=== PATIENT | female | born 1970 | race Asian ===

== ENCOUNTER → 2019-03-24 | Outpatient (CLI) | payer OTHER ==
[~2019-03-24] MED LIST: AMPI250C11 PO; DCS100C PO; GABA-488; HYDR-34 PO; HYDR-3720 PO; IBP800T PO; METR500T PO; NITR100C3 PO; ONDA4TAB11 PO
== END ==
LOC: LABNPT 10:00
PROVIDERS: ATTEND Specialist
DX: K09.8 Other cysts of oral region, not elsewhere classified (principal)
CPT/HCPCS: 87070; 87205

== ENCOUNTER → 2019-06-02 | Outpatient (CLI) | payer OTHER ==
--- NOTE | 2019-06-02 11:44 | Diagnostic Imaging Report ---
INDICATION: Screening. The current study was also evaluated with a Computer Aided Detection (CAD) system. 3-D Tomographic imaging was also performed. COMPARISON: Comparison made with prior examinations from 04/05/2016, 12/31/2013, and 12/19/2012. FINDINGS: The fibroglandular tissue is heterogeneously dense bilaterally. There is no dominant mass, spiculated lesion, or suspicious calcification identified. The skin, nipples, and axillae are unremarkable. IMPRESSION: Negative. ACR BI-RADS Category 1: Negative. Result letter will be mailed to the patient. Note: At least 10% of breast cancer is not imaged by mammography. Dictated by: Dictated on workstation # [id number]
== END ==
LOC: RAD 10:35
PROVIDERS: ATTEND Obstetrics & Gynecology
DX: Z12.31 Encounter for screening mammogram for malignant neoplasm of breast (principal)
CPT/HCPCS: 77067

== ENCOUNTER → 2019-08-26 | Outpatient (CLI) | payer OTHER ==
--- NOTE | 2019-08-26 12:49 | Diagnostic Imaging Report ---
PROCEDURE: US Thyroid. TECHNIQUE: Multiple Real-time grayscale images were obtained of the thyroid in various projections. INDICATION: Thyroid nodule, followup. COMPARISON: 12/22/2013. FINDINGS: The right lobe of the thyroid measures 4.2 x 1.1 x 1.4 cm and the left lobe measures 4.8 x 1.4 x 1.0 cm. The isthmus is 1 mm in thickness. There is a cystic nodule in the mid left lobe of the thyroid measuring approximately 5 mm x 4 mm in size. This is similar in size to small cysts noted 6 years earlier. No dominant thyroid mass is detected. IMPRESSION: Subcentimeter left lobe thyroid cyst. The study is otherwise unremarkable. Dictated by: Dictated on workstation # [id number]
== END ==
LOC: RAD 10:28
PROVIDERS: ATTEND Family Medicine
DX: E04.1 Nontoxic single thyroid nodule (principal); Z85.850 Personal history of malignant neoplasm of thyroid
CPT/HCPCS: 76536

== ENCOUNTER → 2021-02-22 | Outpatient (CLI) | payer OTHER ==
--- NOTE | 2021-02-22 15:24 | Diagnostic Imaging Report ---
INDICATION: Routine screening. COMPARISON: 06/02/2019 and 04/05/2016. TECHNIQUE: 2D and 3D bilateral screening mammography was performed with CAD. FINDINGS: Both breasts are heterogeneously dense, limiting the sensitivity of mammography. The parenchymal pattern is stable. No mass or malignant-appearing microcalcifications are seen. The axillae are unremarkable. IMPRESSION: No mammographic features suspicious for malignancy are identified. ACR BI-RADS Category 1: Negative. Result letter will be mailed to the patient. Note: At least 10% of breast cancer is not imaged by mammography. Dictated by: Dictated on workstation # [id number]
== END ==
LOC: RAD 14:09
PROVIDERS: ATTEND Obstetrics & Gynecology
DX: Z12.31 Encounter for screening mammogram for malignant neoplasm of breast (principal)
CPT/HCPCS: 77063; 77067

== ENCOUNTER → 2021-02-22 | Outpatient (CLI) | payer OTHER ==
--- NOTE | 2021-02-22 15:19 | Diagnostic Imaging Report ---
INDICATION: Asymptomatic postmenopausal female COMPARISON: None. FINDINGS: AP Spine L1-L4: [BMD (g/cm2): 0.826] [T-Score: -3.1] [Z-Score: -2.4] LT Hip Neck: [BMD (g/cm2): 0.729] [T-Score: -2.2] [Z-Score: -1.2] LT Hip Total: [BMD (g/cm2):0.776] [T-Score:-1.8] [Z-Score: -1.1] RT Hip Neck: [BMD (g/cm2):0.780] [T-Score:-1.9] [Z-Score:-0.9] RT Hip Total: [BMD (g/cm2):0.825] [T-score:-1.5] [Z-Score:-0.7] World Health Organization criteria for BMD interpretation classify patients as Normal (T-score at or above -1.0), Osteopenic (T-score between -1.0 and -2.5) or Osteoporotic (T-score at or below -2.5). LIMITATIONS AND MODIFICATION: None. FRACTURE RISK (FRAX SCORE): The ten year probability of (%): Major Osteoporotic Fracture: [5.8] Hip Fracture: [1.0] IMPRESSION: 1. Osteoporosis. 2. Baseline examination. 3. See below National Osteoporosis Foundation guidelines on when to potentially initiate pharmacologic therapy. Based on the National Osteoporosis Foundation Guidelines, pharmacologic treatment should be initiated in any of the following, unless clinical conditions suggest otherwise: * Any patient with prior fragility fracture of the hip or vertebrae. A spine fracture indicates 5X risk for subsequent spine fracture and 2X risk for subsequent hip fracture. * Osteoporosis (T-score <-2.5). * Postmenopausal women and men age 50 and older with low bone mass/osteopenia (T-score between -1.0 and -2.5) by DXA and 10-year major osteoporotic fracture greater than 20% or a 10-year probability of hip fracture greater than 3%. These fracture risks are supplied above in the FRAX score, if applicable. * Clinician judgement and/or patient preferences may indicate treatment for people with 10-year fracture probabilities above or below these levels. Dictated by: Dictated on workstation # [id number]
== END ==
LOC: RAD 14:30
PROVIDERS: ATTEND Family Medicine
DX: M81.0 Age-related osteoporosis without current pathological fracture (principal); M85.80 Other specified disorders of bone density and structure, unspecified site; Z78.0 Asymptomatic menopausal state
CPT/HCPCS: 77080

== ENCOUNTER → 2021-03-16 | Outpatient (CLI) | payer OTHER | LOC: LABNPT 09:59 | PROVIDERS: ATTEND Internal Medicine Cardiovascular Disease | DX: R50.9 Fever, unspecified (principal); Z20.822 Contact with and (suspected) exposure to COVID-19 | CPT/HCPCS: 87636 ==

== ENCOUNTER → 2021-09-01 | Outpatient (CLI) | payer OTHER ==
--- NOTE | 2021-09-01 16:29 | Diagnostic Imaging Report ---
INDICATION: COUGH, CHEST TIGHTNESS COMPARISON: None FINDINGS: Frontal and lateral views of the chest demonstrate normal heart size and pulmonary vascularity. The lungs are clear. There are no signs of infiltrate, pleural effusions or pneumothoraces. The visualized osseous structures show no acute abnormalities. IMPRESSION: 1. No acute process. No signs of infiltrates, effusions or pneumothoraces. Dictated by: Dictated on workstation # [id number]
== END ==
LOC: RAD 15:54
PROVIDERS: ATTEND Family Medicine
DX: R05.9 Cough, unspecified (principal); R07.89 Other chest pain
CPT/HCPCS: 71046

== ENCOUNTER → 2021-09-06 | Outpatient (CLI) | payer OTHER | LOC: LABNPT 08:24 | PROVIDERS: ATTEND Family Medicine | DX: R05.9 Cough, unspecified (principal); R50.9 Fever, unspecified; R07.89 Other chest pain; Z20.822 Contact with and (suspected) exposure to COVID-19 | CPT/HCPCS: 87636 ==

== ENCOUNTER → 2022-08-08 | Outpatient (CLI) | payer BC, OTHER ==
--- NOTE | 2022-08-08 13:45 | Diagnostic Imaging Report ---
INDICATION: Routine screening. COMPARISON: 02/22/2021 and 06/02/2019. TECHNIQUE: 2D and 3D bilateral screening mammography was performed with CAD. FINDINGS: Both breasts are heterogeneously dense, limiting the sensitivity of mammography. The parenchymal pattern is stable. No mass or malignant-appearing microcalcifications are seen. The axillae are unremarkable. IMPRESSION: No mammographic features suspicious for malignancy are identified. ACR BI-RADS Category 1: Negative. Result letter will be mailed to the patient. Note: At least 10% of breast cancer is not imaged by mammography. Dictated by: Dictated on workstation # [id number]
--- NOTE | 2022-08-08 16:30 | Diagnostic Imaging Report ---
INDICATION: Postmenopausal screening COMPARISON: 02/22/2021 FINDINGS: AP Spine L1-L4: [BMD (g/cm2): 0.798] [T-Score: -3.4] [Z-Score: -2.6] [BMD Previous: 0.826] [BMD % Change: -3.4*] LT Hip Neck: [BMD (g/cm2): 0.725] [T-Score: -2.3] [Z-Score: -1.2] LT Hip Total: [BMD (g/cm2):0.790] [T-Score:-1.7] [Z-Score: -1.0] [BMD Previous: 0.776] [BMD % Change: 1.8] RT Hip Neck: [BMD (g/cm2):0.787] [T-Score:-1.8] [Z-Score:-0.8] RT Hip Total: [BMD (g/cm2):0.853] [T-score:-1.2] [Z-Score:-0.55] [BMD Previous:0.825] [BMD % Change:3.4] *Indicates significant change from prior examination based on 95% confidence level. World Health Organization criteria for BMD interpretation classify patients as Normal (T-score at or above -1.0), Osteopenic (T-score between -1.0 and -2.5) or Osteoporotic (T-score at or below -2.5). LIMITATIONS AND MODIFICATION: None. FRACTURE RISK (FRAX SCORE): The ten year probability of (%): Major Osteoporotic Fracture: [6.9] Hip Fracture: [1.2] IMPRESSION: 1. Osteoporosis. 2. Bone mineral density has decreased by a statistically significant amount, as detailed above. 3. See below National Osteoporosis Foundation guidelines on when to potentially initiate pharmacologic therapy. Based on the National Osteoporosis Foundation Guidelines, pharmacologic treatment should be initiated in any of the following, unless clinical conditions suggest otherwise: * Any patient with prior fragility fracture of the hip or vertebrae. A spine fracture indicates 5X risk for subsequent spine fracture and 2X risk for subsequent hip fracture. * Osteoporosis (T-score <-2.5). * Postmenopausal women and men age 50 and older with low bone mass/osteopenia (T-score between -1.0 and -2.5) by DXA and 10-year major osteoporotic fracture greater than 20% or a 10-year probability of hip fracture greater than 3%. These fracture risks are supplied above in the FRAX score, if applicable. * Clinician judgement and/or patient preferences may indicate treatment for people with 10-year fracture probabilities above or below these levels. Dictated by: Dictated on workstation # [id number]
== END ==
LOC: RAD 11:33
PROVIDERS: ATTEND Family Medicine
DX: Z12.31 Encounter for screening mammogram for malignant neoplasm of breast (principal); M81.0 Age-related osteoporosis without current pathological fracture
CPT/HCPCS: 77063; 77067; 77080